=== PATIENT | female | born 1955 | race Caucasian/White ===

== ENCOUNTER 2017-09-11 07:35 | Outpatient (CLI) | payer BC | END 2017-09-11 07:36 | disposition home or self-care (01) | LOC: CP 07:35 | PROVIDERS: ATTEND Family Medicine | DX: R06.02 Shortness of breath (principal); R06.89 Other abnormalities of breathing; R07.89 Other chest pain; R53.83 Other fatigue; Z87.09 Personal history of other diseases of the respiratory system | CPT/HCPCS: 36415; 80048; 81001; 87086 ==

== ENCOUNTER 2017-09-23 07:29 | Outpatient (CLI) | payer BC ==
[2017-09-23] MEDS ORDERED: Iopamidol 370 76% 100 ML VIAL ONE (09:00)
--- NOTE | 2017-09-23 12:29 | CT ---
CT ABDOMEN AND PELVIS WITH IV CONTRAST: INDICATIONS: History of flank pain and left upper quadrant abdominal pain for three months. COMPARISON: None. FINDINGS: There is mild atelectasis seen within the lingula. There is a small hiatal hernia. No focal hepatic lesion is evident. There are gallstones within the gallbladder. The spleen, pancreas, and adrenal glands are normal appearing. The kidneys are normal appearing. No free fluid or enlarged lymph nodes are evident. There is a normal appendix in the right lower quadrant. The uterus is surgically absent. The right adnexa is not definitely visualized and may also be surgically absent. The left adnexa is seen within the left lower quadrant on image 64 of series 2. There are a few scattered colonic diver ticula involving the colon, without evidence of active diverticulitis. No drainable fluid collection is evident. No definite acute osseous abnormality is evident. There is scattered degenerative and osteoarthritic change. IMPRESSION: 1. Small hiatal hernia. 2. Cholelithiasis. 3. Colonic diverticulosis without evidence of active diverticulitis. 4. Post surgical change most suspicious for a hysterectomy and a right oophorectomy. 5. Other chronic findings as above. POS: VERÓNICA
== END 2017-09-23 07:30 | disposition home or self-care (01) ==
LOC: SCSCT 07:29
PROVIDERS: ATTEND Family Medicine
DX: R10.814 Left lower quadrant abdominal tenderness (principal); R10.2 Pelvic and perineal pain; K44.9 Diaphragmatic hernia without obstruction or gangrene; K80.20 Calculus of gallbladder without cholecystitis without obstruction; K57.30 Diverticulosis of large intestine without perforation or abscess without bleeding; Z98.890 Other specified postprocedural states
CPT/HCPCS: 74177

== ENCOUNTER 2017-09-26 07:12 | Outpatient (CLI) | payer BC | END 2017-09-26 07:13 | disposition home or self-care (01) | LOC: BICULT 07:12 | PROVIDERS: ATTEND Family Medicine | DX: R10.9 Unspecified abdominal pain (principal); R19.7 Diarrhea, unspecified; R11.10 Vomiting, unspecified; K80.20 Calculus of gallbladder without cholecystitis without obstruction | CPT/HCPCS: 76700 ==

== ENCOUNTER 2017-10-01 11:08 | Outpatient (CLI) | payer BC ==
[2017-10-01 12:13] LABS: #Basophils 0.1 thou/uL (0.0-0.2); #Eosinphils 0.2 thou/uL (0.0-0.7); #Lymphocytes 1.3 thou/uL (1.20-3.40); #Monocytes 0.5 thou/uL (0.11-0.59); #Neutrophils 5.3 thou/uL (1.40-6.50); %Basophils 0.7 % (0.0-1.0); %Eosinophils 2.6 % (0.0-10.0); %Lymphocytes 17.5 % (21.0-51.0); Hematocrit 40.9 % (36.0-47.0); Mean Platelet Volume 6.8 fL (7.4-10.4); Red Blood Cell (RBC) Count 4.63 mill/uL (4.20-5.40); White Blood Cell (WBC) Count 7.3 thou/uL (4.8-10.8)
[2017-10-01 12:36] LABS: ALT (SGPT) 11 U/L (8-55); AST (SGOT) 13 U/L (5-34); Alkaline Phosphatase 104 U/L (40-150); Anion Gap 11 mmol/L (10-20); BUN (Urea Nitrogen) 11 mg/dL (9.8-20.1); Bilirubin, Direct 0.2 mg/dL (0.1-0.3); Bilirubin, Total 0.5 mg/dL (0.2-1.2); Calc. Creatinine Clearance 0 mL/min (70-130); Calcium 9.8 mg/dL (7.8-10.44); Carbon Dioxide 27 mmol/L (22-29); Chloride 107 mmol/L (98-107); Estimated GFR-MDRD 84; Protein, Total 6.8 g/dL (6.0-8.3)
--- NOTE | 2017-10-02 14:26 | EKG ---
Test Reason : Blood Pressure : / mmHG Vent. Rate : 083 BPM Atrial Rate : 083 BPM P-R Int : 144 ms QRS Dur : 078 ms QT Int : 382 ms P-R-T Axes : 055 031 046 degrees QTc Int : 448 ms Normal sinus rhythm Possible Anterolateral infarct , age undetermined Abnormal ECG Confirmed by ARNULFO ARCINIEGA ([id number]) on 10/02/2017 2:26:13 PM Referred By: Brian DE LEON Confirmed By:ARNULFO ARCINIEGA
== END 2017-10-01 11:09 | disposition home or self-care (01) ==
LOC: LABBT 11:08
PROVIDERS: ATTEND Surgery
DX: Z01.818 Encounter for other preprocedural examination (principal); K81.2 Acute cholecystitis with chronic cholecystitis
CPT/HCPCS: 80048; 80076; 85025; 93005; 93010

== ENCOUNTER 2017-10-09 07:54 | Day surgery (SDC) | payer BC ==
[2017-10-01 11:20] VITALS: BMI 30.8
[2017-10-09] MEDS ORDERED: CEFAZOLIN/Water 2 GM/20 ML SYRINGE ONE (08:33)
[2017-10-09] MEDS ORDERED: Fentanyl 100 MCG/2 ML VIAL ONE ×3 (09:42→11:20)
[2017-10-09] MEDS ORDERED: HYDROmorphone 0.5 MG/0.5 ML SYRINGE ONE (09:43)
[2017-10-09] MEDS ORDERED: Bupivacaine/Epinephrine 0.25% 30 ML VIAL ONE (09:44)
[2017-10-09] MEDS ORDERED: HYDROcodone/Acetaminophen 5/325 mg Tablet ONE (13:14)
[2017-10-09] MEDS ORDERED: ePHEDrine/0.9% NaCl/PF SYRINGE 50 mg/10 ml ONE (13:43)
[2017-10-09] MEDS ORDERED: Ketorolac Tromethamine 30 MG/ML VIAL ONE (13:43)
[2017-10-09] MEDS ORDERED: Dexamethasone 20 MG/5 ML VIAL ONE (13:43)
[2017-10-09] MEDS ORDERED: Succinylcholine Chloride 20 MG/ML 10 ml SYRINGE FS ONE (13:43)
[2017-10-09] MEDS ORDERED: Lidocaine 1% PF 5 ML VIAL ONE (13:43)
[2017-10-09] MEDS ORDERED: Ondansetron HCl/PF 4 MG/2 ML Vial ONE (13:43)
[2017-10-09] MEDS ORDERED: PROPOFOL 200 MG/20 ML VIAL ONE (13:43)
[2017-10-09] MEDS ORDERED: Metoclopramide HCl 10 MG/2 ML VIAL ONE (13:43)
[2017-10-09] MEDS ORDERED: Glycopyrrolate 0.2 MG/ML 5 ML SYRINGE ONE (13:43)
--- NOTE | 2017-10-09 14:06 | OP ---
DATE OF PROCEDURE: 10/09/2017 PREOPERATIVE DIAGNOSIS: Symptomatic gallstones. POSTOPERATIVE DIAGNOSIS: Symptomatic gallstones. PROCEDURE: Laparoscopic cholecystectomy. SURGEON: Henrry Solo M.D. ANESTHESIA: General. Specimen: None. COMPLICATIONS: None. SPECIMEN: Gallbladder. FINDINGS: Gallstones. PROCEDURE IN DETAIL: The patient was taken to the Operating Room and laid supine on the Operating Ro om table. After general anesthetic was obtained, the abdomen was prepped and draped in a sterile fas hion. A curved incision was made below the umbilicus. Cautery was used to dissect down to the umbil ical fascia. Umbilical fascia was incised and held up using a Kinga. The abdominal cavity was ente red using a Gwendolyn clamp. Holding stitch of Vicryl was placed on each side of the fascia. Noonan tro car was placed. High-flow pneumoperitoneum was obtained. An upper midline 5-mm port and two right u pper quadrant 5-mm ports were placed under direct camera visualization. The gallbladder was retracte d from the gallbladder fossa. The peritoneum of the gallbladder was opened anteriorly and posteriorl y. The critical view triangle was seen showing only the cystic duct and cystic artery branching from medial to lateral. There were no other branching structures. Two clips were placed proximally on t he cystic duct and one laterally. It was cut using laparoscopic scissors. The cystic artery was ramu en in the same way. Electrocautery was then used to dissect the gallbladder out of the gallbladder f aries. The gallbladder was placed in an Endo catch bag and brought out through the Noonan. There was no bleeding or bile in the liver bed. The cystic duct stump and cystic artery stump were intact wit hout evidence of extravasation or bleeding. All port sites were infiltrated using local anesthesia. All ports were removed under camera visualization. Pneumoperitoneum was let down. The Vicryl was u sed to close the fascial defect below the umbilicus. All incisions were irrigated and closed using 4 -0 Monocryl and DermaBond. The patient was en route to Recovery in stable condition. All instrument counts, needle counts and lap counts were correct.
== END 2017-10-09 13:30 | disposition home or self-care (01) ==
LOC: SDC 07:54
PROVIDERS: ATTEND Surgery
PROC: 0FT44ZZ Resection of Gallbladder, Percutaneous Endoscopic Approach (ICD-10-PCS; principal; 2017-10-09)
DX: K80.10 Calculus of gallbladder with chronic cholecystitis without obstruction (principal); D64.9 Anemia, unspecified; J45.909 Unspecified asthma, uncomplicated; I10 Essential (primary) hypertension; Z79.899 Other long term (current) drug therapy; Z90.710 Acquired absence of both cervix and uterus; Z98.890 Other specified postprocedural states; Z87.440 Personal history of urinary (tract) infections
CPT/HCPCS: 88304; 96374; J0131; J1100; J1170; J1885; J2001; J2405; J2704; J2765; J3010

== ENCOUNTER 2019-02-04 11:16 | Outpatient (CLI) | payer BC ==
--- NOTE | 2019-02-04 11:58 | RAD ---
THREE VIEWS LEFT FOOT: COMPARISON: None. HISTORY: Medial foot pain. Left foot fracture a large dog landed on foot 2 days ago. FINDINGS: Three views of the left foot show no evidence of acute fracture or dislocation. There is a foreshort ened 4th metatarsal. No dislocation is seen. No radiopaque foreign body is seen. IMPRESSION: No evidence of acute osseous abnormality. POS: TPC
== END 2019-02-04 11:17 | disposition home or self-care (01) ==
LOC: BICRAD 11:16
PROVIDERS: ATTEND Family Medicine
DX: S99.922A Unspecified injury of left foot, initial encounter (principal); Z87.81 Personal history of (healed) traumatic fracture

== ENCOUNTER 2019-08-10 14:49 | Outpatient (CLI) | payer BC ==
--- NOTE | 2019-08-10 15:34 | BD ---
Exam: DEXA one Density 08/10/19 HISTORY: Postmenopausal screening for osteoporosis. Lumbar Spine: MD (g/cm2) T-SCORE Z-SCORE L1 0.832 -1.4 -0.1 L2 0.876 -1.4 0.1 L3 0.908 -1.6 0.0 L4 1.158 0.9 2.5 L1-L4 0.961 -0.8 0.8 Femoral Neck: 0.723 -1.1 0.2 Total Femur: 0.949 0.1 1.1 The ten year fracture risk for a major osteoporotic fracture is 9.5% and for hip fracture is 0.7%. Impression: Osteopenia. POS: TPC
--- NOTE | 2019-08-10 16:10 | MMO ---
Bilateral MAMMO Bilat Screen [facility]. CLINICAL HISTORY: Patient is 63 years old and is seen for screening. The patient has no family history of breast cancer. The patient has no personal history of cancer. VIEWS: The views performed were: bilateral craniocaudal with tomosynthesis and bilateral mediolateral oblique with tomosynthesis. FILMS COMPARED: The present examination has been compared to a prior imaging study performed at [facility] on 09/17/2010. This study has been interpreted with the assistance of computer-aided detection. MAMMOGRAM FINDINGS: There are scattered fibroglandular densities. There are no suspicious masses, suspicious calcifications, or new areas of architectural distortion. IMPRESSION: THERE IS NO MAMMOGRAPHIC EVIDENCE OF MALIGNANCY. A ROUTINE FOLLOW-UP MAMMOGRAM IN 1 YEAR IS RECOMMENDED. THE RESULTS OF THIS EXAM WERE SENT TO THE PATIENT. ACR BI-RADS Category 1 - Negative MAMMOGRAPHY NOTE: 1. A negative mammogram report should not delay a biopsy if a dominant of clinically suspicious mass is present. 2. Approximately 10% to 15% of breast cancers are not detected by mammography. 3. Adenosis and dense breasts may obscure an underlying neoplasm. Reported by: RAFAEL MATIAS MD Electonically Signed: [id number]
== END 2019-08-10 14:50 | disposition home or self-care (01) ==
LOC: BICMAMMO 14:49
PROVIDERS: ATTEND Family Medicine
DX: Z12.31 Encounter for screening mammogram for malignant neoplasm of breast (principal); M81.0 Age-related osteoporosis without current pathological fracture; M85.80 Other specified disorders of bone density and structure, unspecified site
CPT/HCPCS: 77063; 77067; 77080